=== PATIENT | female | born 1955 | race Caucasian/White ===

== ENCOUNTER 2017-04-18 14:48 | Inpatient (IN) | payer OTHER ==
[2017-04-18 14:51] VITALS: BMI 39.1
--- NOTE | 2017-04-18 15:08 | ED.ABDFE ---
HPI - Time seen Time seen: 15:00 - PCP Primary Care Physician: LAIMNE - Complaint Chief Complaint Doctors Comments: Patient presents with complaint of left lower abdominal quadrant pain of one days duration. She denies vomiiting or diarrhea but admits to low grade fever. Chief Complaint:: PT. C/O LEFT LOWER QUADRANT PAIN THAT BEGAN YESTERDAY. PT. STATES LAST NIGHT SHE HAD A FEVER. - Source History Provided: Patient - Mode of arrival Mode of Arrival: Ambulatory - Timing Onset of Chief Complaint: 04/17/17 PMH - PMH Past Medical History: Yes Past Medical History: Angina, Anxiety, Asthma, Depression, GERD, Hypertension, Hypothyroidism Past Medical History Comment: DIVERTICULOSIS, TIA Past Surgical History: Yes Surgical History: Hysterectomy, Ortho Surgery, Tonsillectomy - Family History History of Family Medical Conditions: Yes Family Medical History: Cancer, [place] - Social History Does patient currently use any type of tobacco product: No Have you used tobacco products in the last 12 months: No Type of Tobacco Use: None Does any household member use tobacco: No Alcohol Use: None Do you use any recreational Drugs:: No Lives With: Spouse Lives Where: Home - infectious screening In the last 2 months have you had wt loss of >10#?: NO Have you had fever, night sweats or hemotysis?: No Have you traveled outside the country in the last 6 months?: No Isolation: Standard ROS - Review of Systems Eyes: No Symptoms Reported ENTM: No Symptoms Reported Respiratoy: No Symptoms Reported Cardiovascular: No Symptoms Reported Gastrointestinal/Abdominal: No Symptoms Reported Genitourinary: No Symptoms Reported Neurological: No Symptoms Reported Musculoskeletal: No Symptoms Reported Integumentary: No Symptoms Reported Hematologic/Lymphatic: No Symptoms Reported Endocrine: No Symptoms Reported Psychiatric: No Symptoms Reported All Other Systems: Reviewed and Negative PE - Vital Signs Vitals: Temperature 100.7 F Pulse Rate 89 Respiratory Rate 20 Blood Pressure [Left Arm] 129/64 Blood Pressure [Right Arm] 105/62 Blood Pressure 145/66 O2 Sat by Pulse Oximetry 97 - General Limitations: No Limitations General Appearance: Alert, In No Apparent Distress - Head Head Exam: Normal Inspection, Atraumatic - Eyes Eye exam: Normal Appearance, PERRL, EOMI - ENT ENT Exam: Normal Exam - Neck Neck Exam: Normal Inspection, Full ROM - Chest Chest Inspection: Normal Inspection, Symmetric Chest Wall Rise - Respiratory Respiratory Exam: Normal Lung Sounds Bilat Respiratory Exam: Bilateral Clear to Auscultation - Cardiovascular Cardiovascular Exam: Regular Rate, Normal Rhythm - Abdominal Exam Abdominal Exam: Normal Inspection, Normal Bowel Sounds Abdominal Tenderness: LLQ (pain) - Rectal Rectal Exam: Deferred - Back Back Exam: Normal Inspection, Full ROM - Extremeties Extremities Exam: Normal Inspection, Full ROM - External Exam: Female: Normal External Exam : Speculum Exam (Female): Deferred : Bimanual Exam (female): Deferred - Neurologic Neurological Exam: Alert, Oriented X3, CN II-XII Intact - Psychiatric Psychiatric Exam: Normal Affect - Skin Skin Exam: Warm, Dry, Intact Course - Consultation Called: 17:30 (Dr Braga agreed to admit for further treatment and evaluation) ROR - Labs Reviewed Result Diagrams: 04/18/17 15:21 04/18/17 15:21 Laboratory: WBC 10.4 X10^3/uL (3.6-10.0) H 04/18/17 15:21 RBC 4.53 X10^6/uL (3.5-5.4) 04/18/17 15:21 Hgb 13.9 g/dL (12.0-16.0) 04/18/17 15:21 Hct 40.8 % (36.0-47.0) 04/18/17 15:21 MCV 89.9 fL (80.0-100.0) 04/18/17 15:21 MCH 30.6 pg (27.0-34.0) 04/18/17 15:21 MCHC 34.1 g/dL (33.0-35.0) 04/18/17 15:21 RDW 13.2 % (11.6-16.5) 04/18/17 15:21 Plt Count 235 X10^3/uL (150.0-450.0) 04/18/17 15:21 MPV 7.9 fL (7.4-11.0) 04/18/17 15:21 Neut % (Auto) 65.0 % (42.0-75.0) 04/18/17 15:21 Lymph % (Auto) 20.0 % (21.0-51.0) L 04/18/17 15:21 Grand % (Auto) 9.0 % (0.0-13.0) 04/18/17 15:21 Eos % (Auto) 5.4 % (0.9-2.9) H 04/18/17 15:21 Baso % (Auto) 0.6 % (0.2-1.0) 04/18/17 15:21 Neut # (Auto) 6.8 x10^3/uL (2.2-4.8) H 04/18/17 15:21 Lymph # (Auto) 2.1 X10^3/uL (1.3-2.9) 04/18/17 15:21 Grand # (Auto) 0.9 x10^3/uL (0.3-0.8) H 04/18/17 15:21 Eos # (Auto) 0.6 x10^3/uL (0.0-0.2) H 04/18/17 15:21 Baso # (Auto) 0.1 X10^3/uL (0.0-0.1) 04/18/17 15:21 Absolute Nucleated RBC 0.0 /100WBC 04/18/17 15:21 Sodium 141 mmol/L (136-145) 04/18/17 15:21 Corrected Sodium TNP 04/18/17 15:21 Potassium 4.0 mmol/L (3.5-5.1) 04/18/17 15:21 Chloride 108 mmol/L (98-107) H 04/18/17 15:21 Carbon Dioxide 24.4 mmol/L (21-32) 04/18/17 15:21 BUN 12 mg/dL (7-18) 04/18/17 15:21 Creatinine 0.96 mg/dL (0.55-1.02) 04/18/17 15:21 Est GFR (MDRD) Af Amer > 60 (>60) 04/18/17 15:21 Est GFR (MDRD) Non-Af > 60 (>60) 04/18/17 15:21 Glucose 85 mg/dL (65-99) 04/18/17 15:21 Calcium 8.2 mg/dL (8.5-10.1) L 04/18/17 15:21 Corrected Calcium 8.8 mg/dL (8.5-10.1) 04/18/17 15:21 Total Bilirubin 0.50 mg/dL (0.2-1.0) 04/18/17 15:21 AST 13 Units/L (15-37) L 04/18/17 15:21 ALT 25 Units/L (12-78) 04/18/17 15:21 Alkaline Phosphatase 78 Units/L (46-116) 04/18/17 15:21 C-Reactive Protein 65.50 mg/L (0-3.0) H 04/18/17 15:21 Total Protein 7.5 g/dL (6.4-8.2) 04/18/17 15:21 Albumin 3.3 g/dL (3.4-5.0) L 04/18/17 15:21 Globulin 4.2 g/dL (2.5-4.5) 04/18/17 15:21 Albumin/Globulin Ratio 0.8 Ratio (1.1-2.1) L 04/18/17 15:21 Specimen Type Clean catch urine 04/18/17 15:12 Urine Color Yellow (YELLOW) 04/18/17 15:12 Urine Appearance Clear (CLEAR) 04/18/17 15:12 Urine pH 6.5 (5.0 - 8.0) 04/18/17 15:12 Ur Specific [place] 1.015 (1.000-1.030) 04/18/17 15:12 Urine Protein Negative (NEGATIVE) 04/18/17 15:12 Urine Glucose (UA) Negative (NEGATIVE) 04/18/17 15:12 Urine Ketones Negative (NEGATIVE) 04/18/17 15:12 Urine Occult Blood 1+ (NEGATIVE) 04/18/17 15:12 Urine Nitrite Negative (NEGATIVE) 04/18/17 15:12 Urine Bilirubin Negative (NEGATIVE) 04/18/17 15:12 Urine Urobilinogen Normal (NORMAL) 04/18/17 15:12 Ur Leukocyte Esterase Negative (NEGATIVE) 04/18/17 15:12 Urine RBC 0-3 /HPF (NONE SEEN) 04/18/17 15:12 Urine WBC 0-2 /HPF (NONE SEEN) 04/18/17 15:12 Ur Squamous Epith Cells Many /HPF (NEGATIVE) 04/18/17 15:12 Urine Bacteria 1+ /HPF (NEGATIVE) 04/18/17 15:12 Ur Culture Indicated? No/not indicated 04/18/17 15:12 - XRAY XRAY Interpreted by: Radiologist (CT Abd/Pel with:Acute diverticulitis involving the distal descending colon without evidence of abscess or perforation. Cholelithiasis) - Diagnosis Discharge Problem: Diverticulitis Cholelithiasis Qualifiers: Cholelithiasis location: gallbladder Cholecystitis acuity: chronic Biliary obstruction: without biliary obstruction - Discharge Plan Condition: Stable - Follow ups/Referrals Follow ups/Referrals: Servando Bright [Primary Care Provider] - 3 days - Instructions
[2017-04-18 15:45] LABS: BASOPHILS # (AUTO) 0.1 X10^3/uL (0.0-0.1); BASOPHILS % (AUTO) 0.6 % (0.2-1.0); EOSINOPHILS # (AUTO) 0.6 x10^3/uL (0.0-0.2); EOSINOPHILS % (AUTO) 5.4 % (0.9-2.9); HEMATOCRIT 40.8 % (36.0-47.0); HEMOGLOBIN 13.9 g/dL (12.0-16.0); LYMPHOCYTES # (AUTO) 2.1 X10^3/uL (1.3-2.9); MEAN CORPUSCULAR HEMOGLOBIN 30.6 pg (27.0-34.0); MEAN CORPUSCULAR HGB CONC 34.1 g/dL (33.0-35.0); MEAN CORPUSCULAR VOLUME 89.9 fL (80.0-100.0); MEAN PLATELET VOLUME 7.9 fL (7.4-11.0); MONOCYTES # (AUTO) 0.9 x10^3/uL (0.3-0.8); NEUTROPHILS # (AUTO) 6.8 x10^3/uL (2.2-4.8); PLATELET COUNT 235 X10^3/uL (150.0-450.0); RED BLOOD COUNT 4.53 X10^6/uL (3.5-5.4); RED CELL DISTRIBUTION WIDTH 13.2 % (11.6-16.5); WHITE BLOOD COUNT 10.4 X10^3/uL (3.6-10.0)
[2017-04-18 15:45] LABS: BILIRUBIN,URINE NEGATIVE (NEGATIVE); BLOOD/HEMOGLOBIN,URINE 1+ (NEGATIVE); GLUCOSE, URINE NEGATIVE (NEGATIVE); KETONES,URINE NEGATIVE (NEGATIVE); LEUKOCYTE ESTERASE ,URINE NEGATIVE (NEGATIVE); NITRITES,URINE NEGATIVE (NEGATIVE); PH,URINE 6.5 (5.0 - 8.0); PROTEIN,URINE NEGATIVE (NEGATIVE); UROBILINOGEN,URINE NORMAL (NORMAL)
[2017-04-18 15:53] LABS: APPEARANCE,URINE CLEAR (CLEAR); BACTERIA,URINE 1+ /HPF (NEGATIVE); COLOR,URINE YELLOW (YELLOW); RBC,URINE 0-3 /HPF (NONE SEEN); SQUAMOUS EPITHELIAL CELL,UR MANY /HPF (NEGATIVE)
[2017-04-18 15:54] LABS: ALANINE AMINOTRANSFERASE 25 Units/L (12-78); ALBUMIN 3.3 g/dL (3.4-5.0); ALKALINE PHOSPHATASE 78 Units/L (46-116); ASPARTATE AMINO TRANSFERASE 13 Units/L (15-37); BLOOD UREA NITROGEN 12 mg/dL (7-18); CALCIUM 8.2 mg/dL (8.5-10.1); CARBON DIOXIDE 24.4 mmol/L (21-32); CHLORIDE 108 mmol/L (98-107); COR CA(FOR HYPOALB) 8.8 mg/dL (8.5-10.1); CREATININE 0.96 mg/dL (0.55-1.02); SODIUM 141 mmol/L (136-145); TOTAL PROTEIN 7.5 g/dL (6.4-8.2); eGFR BLACK RACES > 60 (>60); eGFR NON BLACK RACES > 60 (>60)
[2017-04-18] MEDS ORDERED: NS 100 ML IV 0 ML IV ONE (16:10)
--- NOTE | 2017-04-18 16:53 | CT ---
HISTORY: Severe left lower quadrant abdominal pain and fever Study: CT abdomen and pelvis with contrast Comparison: None Technique: Multiple axial images were obtained of the abdomen and pelvis beginning at the lung bases through the level of the ischial tuberosities. Reformatted coronal and sagittal planes were produced as well. Findings: The lung bases are clear. Imaging of the abdomen and pelvis demonstrates short segment wall thickening involving the distal milady cending colon with pericolonic inflammatory stranding. These inflammatory changes are superimposed up on a background of diverticulosis and are most consistent with acute diverticulitis. No organized flu id collection is identified to suggest abscess. No extraluminal free air is visualized to suggest per foration. No free fluid is present. There is no pathologic lymphadenopathy. The appendix is normal in appearance and without inflammatory change. The liver is unremarkable in appearance. There is no int rahepatic ductal dilatation. At least 1 large gallstone is identified within the gallbladder lumen. T he gallbladder is otherwise unremarkable. Incidental note is made of a duodenal diverticulum. The coburn creas, spleen, and bilateral adrenal glands are unremarkable. The kidneys demonstrate normal postcont rast enhancement and are without hydronephrosis. Within the midpole of the right kidney there is a 4. 8 cm renal cyst. Small renal cysts are identified within the left kidney as well. The uterus is surgi hannah absent. The urinary bladder is grossly unremarkable. Incidental note is made of a small fat con taining umbilical hernia. The bony structures are intact. The patient is status post L4-L5 posterior interbody fusion. IMPRESSION: 1. Findings consistent with acute diverticulitis involving the distal descending colon without eviden ce of abscess or perforation. 2. Cholelithiasis and other incidental findings as detailed above. Reported By:
[2017-04-18] MEDS ORDERED: DECADRON INJ IM ONE (17:47)
[2017-04-18 18:27] LABS: AMYLASE 30 Units/L (25-115); LIPASE 88 Units/L (73-393)
[2017-04-18] MEDS: PROTONIX INJ 40 MG VIAL 80 MG in NS 100 ML IV 80 ML IV SCH (20:13)
[2017-04-18] MEDS: NS 1000 ML 1,000 ML IV SCH (20:13)
[2017-04-18] MEDS: FLAGYL IV PREMIX 500 MG BAG 500 MG/100 ML BAG IV SCH (20:14)
[2017-04-18] MEDS: AMBIEN PO SCH (20:14)
[2017-04-18] MEDS: CIPRO IV 400 MG PREMIX* 400 MG/200 ML IV.SOLN. IV SCH (20:14)
[2017-04-18] MEDS: CRESTOR TAB 10 MG PO SCH (20:14)
[2017-04-18] MEDS: ZOFRAN INJ 4 MG VIAL IVP PRN (20:14)
[2017-04-18] MEDS: TAMBOCOR PO SCH (20:15)
[2017-04-18] MEDS: COZAAR PO SCH (20:15)
[2017-04-18] MEDS: TOPAMAX PO SCH (20:15)
[2017-04-18] MEDS: DILAUDID INJ IVP PRN (20:32)
[2017-04-19] MEDS: CIPRO IV 400 MG PREMIX* 400 MG/200 ML IV.SOLN. IV SCH ×3 (00:02→20:59)
[2017-04-19] MEDS: DILAUDID INJ IVP PRN ×4 (00:35→20:59)
[2017-04-19] MEDS: FLAGYL IV PREMIX 500 MG BAG 500 MG/100 ML BAG IV SCH ×4 (03:54→20:58)
[2017-04-19] MEDS: PROTONIX INJ 40 MG VIAL 80 MG in NS 100 ML IV 80 ML IV SCH ×4 (03:54→21:30)
[2017-04-19] MEDS: NS 1000 ML 1,000 ML IV SCH ×4 (06:09→23:55)
[2017-04-19 06:14] LABS: BASOPHILS % (AUTO) 0.7 % (0.2-1.0); EOSINOPHILS # (AUTO) 0.4 x10^3/uL (0.0-0.2); EOSINOPHILS % (AUTO) 6.7 % (0.9-2.9); HEMATOCRIT 37.2 % (36.0-47.0); HEMOGLOBIN 12.8 g/dL (12.0-16.0); LYMPHOCYTES # (AUTO) 1.8 X10^3/uL (1.3-2.9); LYMPHOCYTES % (AUTO) 27.6 % (21.0-51.0); MEAN CORPUSCULAR HEMOGLOBIN 30.8 pg (27.0-34.0); MEAN CORPUSCULAR HGB CONC 34.6 g/dL (33.0-35.0); MEAN CORPUSCULAR VOLUME 89.2 fL (80.0-100.0); MEAN PLATELET VOLUME 7.7 fL (7.4-11.0); MONOCYTES # (AUTO) 0.6 x10^3/uL (0.3-0.8); MONOCYTES % (AUTO) 9.2 % (0.0-13.0); NEUTROPHILS # (AUTO) 3.7 x10^3/uL (2.2-4.8); NEUTROPHILS % (AUTO) 55.8 % (42.0-75.0); PLATELET COUNT 206 X10^3/uL (150.0-450.0); RED BLOOD COUNT 4.17 X10^6/uL (3.5-5.4); WHITE BLOOD COUNT 6.7 X10^3/uL (3.6-10.0)
[2017-04-19 06:31] LABS: ALANINE AMINOTRANSFERASE 22 Units/L (12-78); ALBUMIN 2.8 g/dL (3.4-5.0); ALKALINE PHOSPHATASE 69 Units/L (46-116); ASPARTATE AMINO TRANSFERASE 13 Units/L (15-37); BLOOD UREA NITROGEN 11 mg/dL (7-18); CARBON DIOXIDE 24.3 mmol/L (21-32); CHLORIDE 108 mmol/L (98-107); COR NA(FOR HYPERGLY) 141 mmol/L (136-145); CREATININE 0.89 mg/dL (0.55-1.02); SODIUM 141 mmol/L (136-145); TOTAL PROTEIN 6.7 g/dL (6.4-8.2); eGFR BLACK RACES > 60 (>60); eGFR NON BLACK RACES > 60 (>60)
[2017-04-19 06:46] LABS: ERYTHROCYTE SEDIMENTATION RATE 37 MM/HOUR (0-20)
[2017-04-19] MEDS: ZOFRAN INJ 4 MG VIAL IVP PRN ×2 (09:38→20:57)
[2017-04-19] MEDS: SYNTHROID 50 mcg TAB PO SCH (09:39)
[2017-04-19] MEDS: ASPIRIN PO SCH (09:39)
[2017-04-19] MEDS: OXYBUTYNIN CHLORIDE ER PO SCH (09:39)
[2017-04-19] MEDS: ESTRACE PO SCH (09:39)
[2017-04-19] MEDS: TOPAMAX PO SCH ×2 (09:39→20:58)
[2017-04-19] MEDS: TAMBOCOR PO SCH ×2 (09:39→20:58)
--- NOTE | 2017-04-19 10:42 | DR.H&P ---
H&P - History & Physical for Day of: H&P Date: 04/18/17 - Chief Complaint Chief Complaint: LLQ ABDOMINAL PAIN - Allergies Allergies/Adverse Reactions: Allergies Allergy/AdvReac Type Severity Reaction Status Date / Time No Known Drug Allergies Allergy Verified 04/18/17 14:51 - History of Present Illness History of Present Illness: IS A 61 YEAR OLD PATIENT OF OURS WHO PRESENTED TO THE EMERGENCY ROOM WITH COMPLAINTS OF LLQ ABDOMINAL PAIN THAT BEGAN YESTERDAY. SHE ALSO REPORTS FEVER, BUT DENIES VOMITING OR DIARRHEA. PATIENT DOES REPORT A HISTORY SIGNIFICANT FOR DIVERTICULOSIS. ON ARRIVAL, VITALS SIGNS WERE 99.1-89-20-97%-145/66. LABS WERE OBTAINED. ABNORMAL LAB VALUES INCLUDE THE FOLLOWING: WBC 10.4, CHLORIDE 108, CALCIUM 8.2, AST 13, CRP 65.5, ALBUMIN 3.3. URINALYSIS REVEALED WBC 0-2, RBC 0-3, BACTERIA 1+, LEUKOCYTES TRACE, OCCULT BLOOD 1+. AN ABDOMEN/PELVIS CT WITH CONTRAST WAS OBTAINED AND REVEALED FINDINGS CONSISTENT WITH ACUTE DIVERTICULITITS INVOLVING THE DISTAL DESCENDING COLON WITHOUT EVIDENCE OF ABSCESS OR PERFORATION. CHOLELITHIASIS AND AN INCIDENTAL FINDING OF A SMALL FAT CONTAINING UMBILICAL HERNIA. PATIENT WAS ADMITTED TO THE HOSPITAL FOR FURTHER EVALUATION AND TREATMENT OF DIVERTICULITIS. SHE WAS STARTED ON NORMAL SALINE AT 100ML/HR, CIPRO 400MG IV Q12H, AND FLAGYL 500MG IV Q6H. WE PLAN TO FOLLOW UP WITH AM LABS AND CONTINUE TO MONITOR PATIENT. - Past Medical History Past Medical History: Angina, Anxiety, Asthma, Depression, GERD, Hypertension, Hypothyroidism Additional Medical History: Migraines, PVC's, Cervical Cancer - Past Surgical History Surgical History: Hysterectomy, Ortho Surgery, Tonsillectomy Additional Surgical History: Back surgery, Right TKA, Left shoulder surgery - Family History Family Medical History: Cancer, [place] - Social History Does patient currently use any type of tobacco product: No Have you used tobacco products in the last 12 months: No Type of Tobacco Use: None Does any household member use tobacco: No Alcohol Use: None Drug Use: None - Medications Home Medications: Cholecalciferol (Vitamin D3) [Vitamin D3] 1 tab PO DAILY 04/18/17 [History Confirmed 04/18/17] Losartan Potassium [LOSARTAN POTASSIUM 50 MG *] 1 tab PO HS 04/18/17 [History Confirmed 04/18/17] Oxybutynin Chloride [Oxybutynin Chloride ER] 1 tab PO DAILY 04/18/17 [History Confirmed 04/18/17] Prasterone (Dhea)/Calcium Carb [Dhea 50 mg Tablet] 1 tab PO DAILY 04/18/17 [ History Confirmed 04/18/17] Tramadol HCl 50 mg PO QID PRN 04/18/17 [History Confirmed 04/18/17] Vit B12/Levomefolate/Vit B6/B2 [Cerefolin Caplet] 6,000 units SL DAILY 04/18/17 [History Confirmed 04/18/17] - Review of Systems Constitutional: Fever Eyes: No Symptoms Reported. denies: See HPI, Pain, Vision Change, Conjunctivae Inflammation, Eyelid Inflammation, Redness, Other ENT: No Symptoms Reported. denies: See HPI, Ear Pain, Ear Discharge, Nose Pain , Nose Discharge, Nose Congestion, Mouth Pain, Mouth Swelling, Throat Pain, Throat Swelling, Other Respiratory: No Symptoms Reported. denies: See HPI, Cough, Dry, Shortness of Breath, Hemoptysis, SOB with Excertion, Pleuritic Pain, Sputum, Wheezing, Other Cardiovascular: No Symptoms Reported. denies: Chest Pain, See HPI, Palpitations , Orthopnea, Paroxysmal Noc. Dyspnea, Edema, Light Headedness, Other Gastrointestinal: Abdominal Pain. denies: Nausea, Vomiting, Diarrhea, Constipation, Melena, Hematochezia Genitourinary: No Symptoms Reported. denies: See HPI, Dysuria, Frequency, Incontinence, Hematuria, Retention, Other Musculoskeletal: No Symptoms Reported. denies: See HPI, Shoulder Pain, Arm Pain , Back Pain, Hand Pain, Leg Pain, Foot Pain, Neck Pain, Other Skin: No Symptoms Reported. denies: See HPI, Rash, Lesions, Jaundice, Bruising , Wound, Ecchymosis, Other Neurological: No Symptoms Reported - Physical Exam Vital Signs: Temperature 97.6 F Pulse Rate [Right Brachial] 58 Pulse Rate 89 Respiratory Rate 20 Blood Pressure [Left Arm] 107/61 Blood Pressure [Right Arm] 94/50 Blood Pressure 145/66 O2 Sat by Pulse Oximetry 93 Oriented: Normal Eyes: Normal. negative: Blurred Vision, Diplopia, Discharge, Pain, Redness, Photophobia, Other Ear: Normal. negative: Swelling, Ecchymosis, Hemotypanum, Abrasion, Laceration Nose: Normal. negative: Injected, Discharge, Blood Throat: Normal. negative: Tonsillar Hypertrophy, Red, Exudate, Dry, Other Respiratory: Clear Throughout Cardiovascular: Normal. negative: S3, S4, Murmur, Edema : Normal Auscultation: Bowel Sounds: Normal Palpation: Normal Tenderness: LLQ, Moderate, Guarding Skin: Normal. negative: Decreased Turgur, Rash, Papular, Macular, Maculopapular , Vesicular, Pustular, Petechial, Red, Tender, Hot, Diaphoresis, Wound, Bruising , Ecchymosis, Other Musculoskeletal: Normal. negative: Right, Left, Shoulder, Clavicle, Arm, Elbow , Forearm, Wrist, Hand, Hip, Thigh, Knee, Leg, Ankle, Foot, Back:Thoracic, Back: Lumbar, Back:Midline, Back:Paraspinous, Pelvis, Swelling, Tender, Deformity, Pulse Deficit, Motor Deficit, Sensory Deficit, Instability, Crepitance Psychiatric: Normal Mood Description: Calm Affect: Normal Speech Pattern: Clear - Assessment/Plan (1) Diverticulitis Status: Acute Plan: CIPRO 400MG IV Q12H, FLAYL 500MG IV Q6H, PROTONIX DRIP, CONTINUE TO MONITOR (2) Cholelithiasis Qualifiers: Cholelithiasis location: gallbladder Cholecystitis acuity: chronic Biliary obstruction: without biliary obstruction Status: Acute Plan: NORMAL SALINE AT 100ML/HR, DILAUDID 1MG IV Q4H PRN, CONTINUE TO MONITOR
--- NOTE | 2017-04-19 11:16 | PCM.PROG ---
Progress Note - Progress Note for Day of Date: 04/19/17 - Subjective Subjective: IS BEING TREATED FOR DIVERTICULITIS AND CHOLELITHIASIS. TODAY, SHE IS ALERT AND ORIENTED, LYING IN BED ON MORNING ROUNDS. SPOUSE IS AT BEDSIDE. SHE CONTINUES WITH COMPLAINTS OF LLQ ABDOMINAL PAIN TODAY. SHE CURRENTLY RATES PAIN 5/10. ON EXAMINATION, HEART IS REGULAR IN RATE AND RHYTHM. BILATERAL LUNGS ARE CLEAR TO AUSCULTATION. ABDOMEN IS ROUND, SOFT, AND NOTED WITH TENDERNESS TO THE LLQ ON PALPATION. NORMAL BOWEL SOUNDS ARE NOTED IN ALL QUADRANTS. THERE IS NORMAL RANGE OF MOTION NOTED TO ALL EXTREMITIES. HER VITALS THIS MORNING ARE 97.6-58-20-93%-94/50. LABS WERE OBTAINED. ABNORMAL LAB VALUES INCLUDE THE FOLLOWING: CHLORIDE 108, GLUCOSE 111, CALCIUM 8.0, AST 13, CRP 60.50 , ALBUMIN 2.8. TODAY, WE WILL CONTINUE WITH IV ANTIBIOTICS AND CURRENT PLAN OF CARE FOR DIVERTICULITIS AND CHOLELITHIASIS. WE PLAN TO FOLLOW UP WITH AM LABS AND CONTINUE TO MONITOR PATIENT. - Past Medical Family Social History Past Med/Fam/Surg Hx: No changes since H&P Allergies: Allergies No Known Drug Allergies Allergy (Verified 04/18/17 14:51) - Review of Systems ROS: No change since H&P - Vital Signs and I&O's Vital Signs: Temperature 97.6 F Pulse Rate [Right Brachial] 58 Pulse Rate 89 Respiratory Rate 20 Blood Pressure [Left Arm] 107/61 Blood Pressure [Right Arm] 94/50 Blood Pressure 145/66 O2 Sat by Pulse Oximetry 93 Intake and Output: Intake & Output 04/16/17 04/17/17 04/18/17 04/19/17 11:59 11:59 11:59 11:59 Intake Total 290 Balance 290 - Physical Exam Oriented: Normal Eyes: Normal. negative: Blurred Vision, Diplopia, Discharge, Pain, Redness, Photophobia, Other Ear: Normal. negative: Swelling, Ecchymosis, Hemotypanum, Abrasion, Laceration Nose: Normal. negative: Injected, Discharge, Blood Throat: Normal. negative: Tonsillar Hypertrophy, Red, Exudate, Dry, Other Respiratory: Normal Cardiovascular: Normal. negative: S3, S4, Murmur, Edema : Normal Auscultation: Bowel Sounds: Normal Palpation: Normal Tenderness: LLQ, Moderate, Guarding Skin: Normal. negative: Decreased Turgur, Rash, Papular, Macular, Maculopapular , Vesicular, Pustular, Petechial, Red, Tender, Hot, Diaphoresis, Wound, Bruising , Ecchymosis, Other Musculoskeletal: Normal. negative: Right, Left, Shoulder, Clavicle, Arm, Elbow , Forearm, Wrist, Hand, Hip, Thigh, Knee, Leg, Ankle, Foot, Back:Thoracic, Back: Lumbar, Back:Midline, Back:Paraspinous, Pelvis, Swelling, Tender, Deformity, Pulse Deficit, Motor Deficit, Sensory Deficit, Instability, Crepitance Psychiatric: Normal Mood Description: Calm Affect: Normal Speech Pattern: Clear - Laboratory and Diagnostics Result Diagrams: 04/19/17 05:30 04/19/17 05:30 Labs: Laboratory WBC 6.7 X10^3/uL (3.6-10.0) 04/19/17 05:30 RBC 4.17 X10^6/uL (3.5-5.4) 04/19/17 05:30 Hgb 12.8 g/dL (12.0-16.0) 04/19/17 05:30 Hct 37.2 % (36.0-47.0) 04/19/17 05:30 MCV 89.2 fL (80.0-100.0) 04/19/17 05:30 MCH 30.8 pg (27.0-34.0) 04/19/17 05:30 MCHC 34.6 g/dL (33.0-35.0) 04/19/17 05:30 RDW 13.0 % (11.6-16.5) 04/19/17 05:30 Plt Count 206 X10^3/uL (150.0-450.0) 04/19/17 05:30 MPV 7.7 fL (7.4-11.0) 04/19/17 05:30 Neut % (Auto) 55.8 % (42.0-75.0) 04/19/17 05:30 Lymph % (Auto) 27.6 % (21.0-51.0) 04/19/17 05:30 [place] % (Auto) 9.2 % (0.0-13.0) 04/19/17 05:30 Eos % (Auto) 6.7 % (0.9-2.9) H 04/19/17 05:30 Baso % (Auto) 0.7 % (0.2-1.0) 04/19/17 05:30 Neut # (Auto) 3.7 x10^3/uL (2.2-4.8) 04/19/17 05:30 Lymph # (Auto) 1.8 X10^3/uL (1.3-2.9) 04/19/17 05:30 [place] # (Auto) 0.6 x10^3/uL (0.3-0.8) 04/19/17 05:30 Eos # (Auto) 0.4 x10^3/uL (0.0-0.2) H 04/19/17 05:30 Baso # (Auto) 0.0 X10^3/uL (0.0-0.1) 04/19/17 05:30 Absolute Nucleated RBC 0.1 /100WBC 04/19/17 05:30 ESR 37 MM/HOUR (0-20) H 04/19/17 05:30 Sodium 141 mmol/L (136-145) 04/19/17 05:30 Corrected Sodium 141 mmol/L (136-145) 04/19/17 05:30 Potassium 3.9 mmol/L (3.5-5.1) 04/19/17 05:30 Chloride 108 mmol/L (98-107) H 04/19/17 05:30 Carbon Dioxide 24.3 mmol/L (21-32) 04/19/17 05:30 BUN 11 mg/dL (7-18) 04/19/17 05:30 Creatinine 0.89 mg/dL (0.55-1.02) 04/19/17 05:30 Est GFR (MDRD) Af Amer > 60 (>60) 04/19/17 05:30 Est GFR (MDRD) Non-Af > 60 (>60) 04/19/17 05:30 Glucose 111 mg/dL (65-99) H 04/19/17 05:30 Calcium 8.0 mg/dL (8.5-10.1) L 04/19/17 05:30 Corrected Calcium 9.0 mg/dL (8.5-10.1) 04/19/17 05:30 Total Bilirubin 0.40 mg/dL (0.2-1.0) 04/19/17 05:30 AST 13 Units/L (15-37) L 04/19/17 05:30 ALT 22 Units/L (12-78) 04/19/17 05:30 Alkaline Phosphatase 69 Units/L (46-116) 04/19/17 05:30 C-Reactive Protein 60.50 mg/L (0-3.0) H 04/19/17 05:30 Total Protein 6.7 g/dL (6.4-8.2) 04/19/17 05:30 Albumin 2.8 g/dL (3.4-5.0) L 04/19/17 05:30 Globulin 3.9 g/dL (2.5-4.5) 04/19/17 05:30 Albumin/Globulin Ratio 0.7 Ratio (1.1-2.1) L 04/19/17 05:30 Amylase 30 Units/L (25-115) 04/18/17 15:21 Lipase 88 Units/L (73-393) 04/18/17 15:21 Specimen Type Clean catch urine 04/18/17 15:12 Urine Color Yellow (YELLOW) 04/18/17 15:12 Urine Appearance Clear (CLEAR) 04/18/17 15:12 Urine pH 6.5 (5.0 - 8.0) 04/18/17 15:12 Ur Specific [place] 1.015 (1.000-1.030) 04/18/17 15:12 Urine Protein Negative (NEGATIVE) 04/18/17 15:12 Urine Glucose (UA) Negative (NEGATIVE) 04/18/17 15:12 Urine Ketones Negative (NEGATIVE) 04/18/17 15:12 Urine Occult Blood 1+ (NEGATIVE) 04/18/17 15:12 Urine Nitrite Negative (NEGATIVE) 04/18/17 15:12 Urine Bilirubin Negative (NEGATIVE) 04/18/17 15:12 Urine Urobilinogen Normal (NORMAL) 04/18/17 15:12 Ur Leukocyte Esterase Negative (NEGATIVE) 04/18/17 15:12 Urine RBC 0-3 /HPF (NONE SEEN) 04/18/17 15:12 Urine WBC 0-2 /HPF (NONE SEEN) 04/18/17 15:12 Ur Squamous Epith Cells Many /HPF (NEGATIVE) 04/18/17 15:12 Urine Bacteria 1+ /HPF (NEGATIVE) 04/18/17 15:12 Ur Culture Indicated? No/not indicated 04/18/17 15:12 - Plan (1) Diverticulitis Status: Acute Plan: CIPRO 400MG IV Q12H, FLAYL 500MG IV Q6H, PROTONIX DRIP, CONTINUE TO MONITOR (2) Cholelithiasis Status: Acute Qualifiers: Cholelithiasis location: gallbladder Cholecystitis acuity: chronic Biliary obstruction: without biliary obstruction Plan: NORMAL SALINE AT 100ML/HR, DILAUDID 1MG IV Q4H PRN, CONTINUE TO MONITOR (3) Hyperlipidemia Status: Chronic Qualifiers: Hyperlipidemia type: mixed hyperlipidemia Qualified Code(s): E78.2 - Mixed hyperlipidemia Plan: CONTINUE CRESTOR, CONTINUE TO MONITOR (4) GERD (gastroesophageal reflux disease) Status: Chronic Qualifiers: Esophagitis presence: esophagitis presence not specified Qualified Code(s) : K21.9 - Gastro-esophageal reflux disease without esophagitis Plan: CONTINUE ZANTAC, CONTINUE TO MONITOR (5) Hypertension Status: Chronic Qualifiers: Hypertension type: essential hypertension Qualified Code(s): I10 - Essential (primary) hypertension Plan: CONTINUE LOPRESSOR, CONTINUE TOPAMAX, CONTINUE TO MONITOR (6) Hypothyroidism Status: Chronic Qualifiers: Hypothyroidism type: acquired Qualified Code(s): E03.9 - Hypothyroidism, unspecified Plan: CONTINUE SYNTHROID, CONTINUE TO MONITOR
[2017-04-19] MEDS: B2 SL SCH (12:00)
[2017-04-19] MEDS: LEVOMEFOLATE SL SCH (12:00)
[2017-04-19] MEDS: CALCIUM CARB PO SCH (12:00)
[2017-04-19] MEDS: VIT B6 SL SCH (12:00)
[2017-04-19] MEDS: PRASTERONE PO SCH (12:00)
[2017-04-19] MEDS: [UNRECOGNIZED DRUG - OTHER] SL SCH (12:00)
[2017-04-19] MEDS: VIT B12 SL SCH (12:00)
[2017-04-19] MEDS: PROGESTERONE MICRONIZED 200 MG PO SCH (12:00)
[2017-04-19] MEDS: AMBIEN PO SCH (20:57)
[2017-04-19] MEDS: COZAAR PO SCH (20:57)
[2017-04-19] MEDS: CRESTOR TAB 10 MG PO SCH (20:58)
[2017-04-20] MEDS: PROTONIX INJ 40 MG VIAL 80 MG in NS 100 ML IV 80 ML IV SCH ×4 (02:16→20:21)
[2017-04-20] MEDS: DILAUDID INJ IVP PRN ×3 (05:00→20:23)
[2017-04-20] MEDS: FLAGYL IV PREMIX 500 MG BAG 500 MG/100 ML BAG IV SCH ×4 (05:00→20:21)
[2017-04-20 05:55] LABS: BASOPHILS % (AUTO) 0.7 % (0.2-1.0); EOSINOPHILS # (AUTO) 0.6 x10^3/uL (0.0-0.2); EOSINOPHILS % (AUTO) 9.7 % (0.9-2.9); HEMATOCRIT 38.1 % (36.0-47.0); HEMOGLOBIN 12.9 g/dL (12.0-16.0); LYMPHOCYTES # (AUTO) 1.8 X10^3/uL (1.3-2.9); LYMPHOCYTES % (AUTO) 28.1 % (21.0-51.0); MEAN CORPUSCULAR HEMOGLOBIN 30.4 pg (27.0-34.0); MEAN CORPUSCULAR HGB CONC 33.8 g/dL (33.0-35.0); MEAN CORPUSCULAR VOLUME 89.9 fL (80.0-100.0); MEAN PLATELET VOLUME 7.7 fL (7.4-11.0); MONOCYTES # (AUTO) 0.5 x10^3/uL (0.3-0.8); MONOCYTES % (AUTO) 8.1 % (0.0-13.0); NEUTROPHILS # (AUTO) 3.4 x10^3/uL (2.2-4.8); NEUTROPHILS % (AUTO) 53.4 % (42.0-75.0); PLATELET COUNT 220 X10^3/uL (150.0-450.0); RED BLOOD COUNT 4.24 X10^6/uL (3.5-5.4); RED CELL DISTRIBUTION WIDTH 12.7 % (11.6-16.5); WHITE BLOOD COUNT 6.3 X10^3/uL (3.6-10.0)
[2017-04-20 06:14] LABS: ALANINE AMINOTRANSFERASE 23 Units/L (12-78); ALBUMIN 2.8 g/dL (3.4-5.0); ALKALINE PHOSPHATASE 65 Units/L (46-116); ASPARTATE AMINO TRANSFERASE 13 Units/L (15-37); BLOOD UREA NITROGEN 9 mg/dL (7-18); CALCIUM 8.1 mg/dL (8.5-10.1); CARBON DIOXIDE 24.7 mmol/L (21-32); CHLORIDE 109 mmol/L (98-107); COR CA(FOR HYPOALB) 9.1 mg/dL (8.5-10.1); CREATININE 0.95 mg/dL (0.55-1.02); SODIUM 143 mmol/L (136-145); TOTAL PROTEIN 6.7 g/dL (6.4-8.2); eGFR BLACK RACES > 60 (>60); eGFR NON BLACK RACES > 60 (>60)
[2017-04-20] MEDS: CIPRO IV 400 MG PREMIX* 400 MG/200 ML IV.SOLN. IV SCH ×2 (09:18→20:21)
[2017-04-20] MEDS: TAMBOCOR PO SCH ×2 (09:19→20:20)
[2017-04-20] MEDS: ASPIRIN PO SCH (09:19)
[2017-04-20] MEDS: OXYBUTYNIN CHLORIDE ER PO SCH (09:19)
[2017-04-20] MEDS: SYNTHROID 50 mcg TAB PO SCH (09:19)
[2017-04-20] MEDS: TOPAMAX PO SCH ×2 (09:19→20:20)
[2017-04-20] MEDS: ESTRACE PO SCH (09:19)
[2017-04-20] MEDS: B2 SL SCH (09:26)
[2017-04-20] MEDS: PRASTERONE PO SCH (09:26)
[2017-04-20] MEDS: CALCIUM CARB PO SCH (09:26)
[2017-04-20] MEDS: VIT B6 SL SCH (09:26)
[2017-04-20] MEDS: LEVOMEFOLATE SL SCH (09:26)
[2017-04-20] MEDS: [UNRECOGNIZED DRUG - OTHER] SL SCH (09:26)
[2017-04-20] MEDS: PROGESTERONE MICRONIZED 200 MG PO SCH (09:26)
[2017-04-20] MEDS: VIT B12 SL SCH (09:26)
[2017-04-20] MEDS: NS 1000 ML 1,000 ML IV SCH ×2 (11:20→20:31)
[2017-04-20] MEDS: CRESTOR TAB 10 MG PO SCH (20:20)
[2017-04-20] MEDS: COZAAR PO SCH (20:31)
[2017-04-20] MEDS: AMBIEN PO SCH (22:14)
[2017-04-21] MEDS: DILAUDID INJ IVP PRN ×3 (04:10→23:40)
[2017-04-21] MEDS: FLAGYL IV PREMIX 500 MG BAG 500 MG/100 ML BAG IV SCH ×4 (04:19→20:53)
[2017-04-21 05:39] LABS: BASOPHILS % (AUTO) 0.7 % (0.2-1.0); EOSINOPHILS # (AUTO) 0.6 x10^3/uL (0.0-0.2); EOSINOPHILS % (AUTO) 9.7 % (0.9-2.9); HEMATOCRIT 38.1 % (36.0-47.0); HEMOGLOBIN 12.9 g/dL (12.0-16.0); LYMPHOCYTES # (AUTO) 2.1 X10^3/uL (1.3-2.9); LYMPHOCYTES % (AUTO) 32.2 % (21.0-51.0); MEAN CORPUSCULAR HEMOGLOBIN 30.6 pg (27.0-34.0); MEAN CORPUSCULAR HGB CONC 33.9 g/dL (33.0-35.0); MEAN CORPUSCULAR VOLUME 90.2 fL (80.0-100.0); MEAN PLATELET VOLUME 7.9 fL (7.4-11.0); MONOCYTES # (AUTO) 0.6 x10^3/uL (0.3-0.8); MONOCYTES % (AUTO) 8.8 % (0.0-13.0); NEUTROPHILS # (AUTO) 3.2 x10^3/uL (2.2-4.8); NEUTROPHILS % (AUTO) 48.6 % (42.0-75.0); PLATELET COUNT 221 X10^3/uL (150.0-450.0); RED BLOOD COUNT 4.23 X10^6/uL (3.5-5.4); RED CELL DISTRIBUTION WIDTH 12.9 % (11.6-16.5); WHITE BLOOD COUNT 6.5 X10^3/uL (3.6-10.0)
[2017-04-21 05:55] LABS: ALANINE AMINOTRANSFERASE 25 Units/L (12-78); ALBUMIN 2.9 g/dL (3.4-5.0); ALKALINE PHOSPHATASE 67 Units/L (46-116); ASPARTATE AMINO TRANSFERASE 19 Units/L (15-37); BLOOD UREA NITROGEN 7 mg/dL (7-18); CALCIUM 8.2 mg/dL (8.5-10.1); CARBON DIOXIDE 24.7 mmol/L (21-32); CHLORIDE 108 mmol/L (98-107); COR CA(FOR HYPOALB) 9.1 mg/dL (8.5-10.1); SODIUM 142 mmol/L (136-145); TOTAL PROTEIN 6.6 g/dL (6.4-8.2); eGFR BLACK RACES > 60 (>60); eGFR NON BLACK RACES > 60 (>60)
[2017-04-21] MEDS: PROTONIX INJ 40 MG VIAL 80 MG in NS 100 ML IV 80 ML IV SCH ×3 (06:18→18:20)
[2017-04-21] MEDS: NS 1000 ML 1,000 ML IV SCH ×2 (06:18→08:30)
[2017-04-21] MEDS: CIPRO IV 400 MG PREMIX* 400 MG/200 ML IV.SOLN. IV SCH ×2 (08:26→20:54)
[2017-04-21] MEDS: ASPIRIN PO SCH (08:27)
[2017-04-21] MEDS: ESTRACE PO SCH (08:27)
[2017-04-21] MEDS: OXYBUTYNIN CHLORIDE ER PO SCH (08:27)
[2017-04-21] MEDS: SYNTHROID 50 mcg TAB PO SCH (08:28)
[2017-04-21] MEDS: TAMBOCOR PO SCH ×2 (08:29→20:53)
[2017-04-21] MEDS: TOPAMAX PO SCH ×2 (08:29→20:52)
[2017-04-21] MEDS: VIT B6 SL SCH (08:30)
[2017-04-21] MEDS: VIT B12 SL SCH (08:30)
[2017-04-21] MEDS: [UNRECOGNIZED DRUG - OTHER] SL SCH (08:30)
[2017-04-21] MEDS: B2 SL SCH (08:30)
[2017-04-21] MEDS: PRASTERONE PO SCH (08:30)
[2017-04-21] MEDS: CALCIUM CARB PO SCH (08:30)
[2017-04-21] MEDS: LEVOMEFOLATE SL SCH (08:30)
[2017-04-21] MEDS: PROGESTERONE MICRONIZED 200 MG PO SCH (08:30)
--- NOTE | 2017-04-21 08:37 | CT ---
HISTORY: Diverticulitis Study: CT abdomen and pelvis with IV and oral contrast Comparison: 04/18/2017 Technique: Multiple axial images of the abdomen and pelvis were obtained from the lung bases to the pubic symphy sis following the administration of IV contrast. Oral contrast agents were also given. Coronal and s agittal images are also reviewed. Dose reduction techniques utilized automatic exposure control. Findings: The visualized portions of the lung bases are unremarkable. The liver, spleen, pancreas, and adrenal glands are unremarkable in their CT appearance. A 1.84 cm calcified gallstone is present. No gallbla dder wall thickening or pericholecystic fluid is seen. Stable bilateral renal cysts are again seen.. No significant mesenteric lymphadenopathy or stranding can be observed. No free fluid or free air i s seen within the abdomen. No bowel wall thickening or bowel dilatation is present. There is no sig nificant change in the appearance of diverticulitis involving the junction of the lower descending an d sigmoid colon regions. There is pericolonic fat reticulation in an area of severe diverticulosis. N o evidence of perforation, fluid or abscess is seen. There is no evidence of bowel obstruction. The u terus and ovaries are surgically absent.. The urinary bladder is grossly unremarkable. L4-5 lumbar f usion is again seen. There is degenerative disc disease also at L3-4. IMPRESSION: No significant interval change present involving the segment of active diverticulitis involving the d istal descending/sigmoid colon region. No abscess, fluid, perforation or obstruction is seen. Solitary calcified gallstone. Stable bilateral simple renal cysts. Reported By:
[2017-04-21] MEDS: ZOFRAN INJ 4 MG VIAL IVP PRN (10:03)
[2017-04-21] MEDS: MILK OF MAGNESIA PO SCH ×2 (15:57→20:51)
[2017-04-21] MEDS: COLACE CAP 100 MG PO SCH ×2 (15:57→20:51)
[2017-04-21] MEDS: CRESTOR TAB 10 MG PO SCH (20:52)
[2017-04-21] MEDS: COZAAR PO SCH (20:52)
[2017-04-21] MEDS: AMBIEN PO SCH (21:27)
[2017-04-22] MEDS ORDERED: K-LYTE EFFERVESCENT PO PRN (03:00)
[2017-04-22] MEDS ORDERED: MAG-OX TAB PO PRN (03:00)
[2017-04-22] MEDS ORDERED: MAGNESIUM SULFATE 1 GM/100 mL PREMIX 1 GM/100 ML BAG IV PRN (03:00)
[2017-04-22] MEDS ORDERED: POTASSIUM CHL 40 MEQ/NS 0.45% 500 ML IV PRN (03:00)
[2017-04-22] MEDS ORDERED: K-RIDER 10 MEQ/NS 100 ML 10 MEQ/100 ML BAG IV PRN (03:00)
[2017-04-22] MEDS ORDERED: POTASSIUM CHLORIDE LIQ 20 MEQ UDC PO PRN (03:00)
[2017-04-22] MEDS ORDERED: POTASSIUM CHL 60 MEQ/NS 0.45% 500 ML IV PRN (03:00)
[2017-04-22] MEDS: PROTONIX INJ 40 MG VIAL 80 MG in NS 100 ML IV 80 ML IV SCH ×3 (03:21→23:01)
[2017-04-22] MEDS: FLAGYL IV PREMIX 500 MG BAG 500 MG/100 ML BAG IV SCH ×4 (03:21→22:09)
[2017-04-22] MEDS ORDERED: NS 100 ML IV + SPIKE MINIBAG* 100 ML IV ONE ×3 (03:24→22:56)
[2017-04-22 05:31] LABS: BASOPHILS # (AUTO) 0.1 X10^3/uL (0.0-0.1); BASOPHILS % (AUTO) 0.9 % (0.2-1.0); EOSINOPHILS # (AUTO) 0.7 x10^3/uL (0.0-0.2); EOSINOPHILS % (AUTO) 8.1 % (0.9-2.9); HEMATOCRIT 40.8 % (36.0-47.0); LYMPHOCYTES # (AUTO) 2.7 X10^3/uL (1.3-2.9); LYMPHOCYTES % (AUTO) 33.3 % (21.0-51.0); MEAN CORPUSCULAR HEMOGLOBIN 30.6 pg (27.0-34.0); MEAN CORPUSCULAR HGB CONC 34.3 g/dL (33.0-35.0); MEAN CORPUSCULAR VOLUME 89.2 fL (80.0-100.0); MEAN PLATELET VOLUME 8.5 fL (7.4-11.0); MONOCYTES # (AUTO) 0.8 x10^3/uL (0.3-0.8); MONOCYTES % (AUTO) 9.4 % (0.0-13.0); NEUTROPHILS # (AUTO) 3.9 x10^3/uL (2.2-4.8); NEUTROPHILS % (AUTO) 48.3 % (42.0-75.0); PLATELET COUNT 145 X10^3/uL (150.0-450.0); RED BLOOD COUNT 4.58 X10^6/uL (3.5-5.4); RED CELL DISTRIBUTION WIDTH 12.6 % (11.6-16.5)
[2017-04-22 06:00] LABS: ALANINE AMINOTRANSFERASE 39 Units/L (12-78); ALKALINE PHOSPHATASE 70 Units/L (46-116); ASPARTATE AMINO TRANSFERASE 38 Units/L (15-37); BLOOD UREA NITROGEN 7 mg/dL (7-18); CALCIUM 8.4 mg/dL (8.5-10.1); CARBON DIOXIDE 26.1 mmol/L (21-32); CHLORIDE 107 mmol/L (98-107); COR CA(FOR HYPOALB) 9.2 mg/dL (8.5-10.1); CREATININE 0.96 mg/dL (0.55-1.02); SODIUM 142 mmol/L (136-145); TOTAL PROTEIN 6.8 g/dL (6.4-8.2); eGFR BLACK RACES > 60 (>60); eGFR NON BLACK RACES > 60 (>60)
[2017-04-22 06:08] LABS: PLATELET MORPHOLOGY COMMENT NORMAL (NORMAL); WHITE BLOOD COUNT 8.1 X10^3/uL (3.6-10.0)
[2017-04-22] MEDS: MILK OF MAGNESIA PO SCH ×3 (09:19→22:09)
[2017-04-22] MEDS: SYNTHROID 50 mcg TAB PO SCH (09:19)
[2017-04-22] MEDS: CIPRO IV 400 MG PREMIX* 400 MG/200 ML IV.SOLN. IV SCH ×2 (09:19→22:11)
[2017-04-22] MEDS: ASPIRIN PO SCH (09:19)
[2017-04-22] MEDS: COLACE CAP 100 MG PO SCH ×2 (09:29→22:08)
[2017-04-22] MEDS: TAMBOCOR PO SCH ×2 (09:30→22:06)
[2017-04-22] MEDS: ESTRACE PO SCH (09:33)
[2017-04-22] MEDS: OXYBUTYNIN CHLORIDE ER PO SCH (09:34)
[2017-04-22] MEDS: TOPAMAX PO SCH ×2 (09:41→22:07)
[2017-04-22] MEDS: VIT B6 SL SCH (09:45)
[2017-04-22] MEDS: VIT B12 SL SCH (09:45)
[2017-04-22] MEDS: PROGESTERONE MICRONIZED 200 MG PO SCH (09:45)
[2017-04-22] MEDS: B2 SL SCH (09:45)
[2017-04-22] MEDS: [UNRECOGNIZED DRUG - OTHER] SL SCH (09:45)
[2017-04-22] MEDS: LEVOMEFOLATE SL SCH (09:45)
[2017-04-22] MEDS: CALCIUM CARB PO SCH (09:45)
[2017-04-22] MEDS: PRASTERONE PO SCH (09:45)
[2017-04-22] MEDS: NS 1000 ML 1,000 ML IV SCH (11:02)
[2017-04-22] MEDS ORDERED: TYLENOL 325 MG TAB PO PRN (19:49)
[2017-04-22] MEDS: AMBIEN PO SCH (22:06)
[2017-04-22] MEDS: COZAAR PO SCH (22:06)
[2017-04-22] MEDS: CRESTOR TAB 10 MG PO SCH (22:06)
[2017-04-23] MEDS: FLAGYL IV PREMIX 500 MG BAG 500 MG/100 ML BAG IV SCH ×2 (03:29→11:44)
[2017-04-23 06:40] LABS: ALANINE AMINOTRANSFERASE 45 Units/L (12-78); ALBUMIN 3.1 g/dL (3.4-5.0); ALKALINE PHOSPHATASE 67 Units/L (46-116); ASPARTATE AMINO TRANSFERASE 42 Units/L (15-37); BLOOD UREA NITROGEN 8 mg/dL (7-18); CALCIUM 8.3 mg/dL (8.5-10.1); CARBON DIOXIDE 20.5 mmol/L (21-32); CHLORIDE 108 mmol/L (98-107); COR NA(FOR HYPERGLY) 141 mmol/L (136-145); CREATININE 0.76 mg/dL (0.55-1.02); SODIUM 141 mmol/L (136-145); TOTAL PROTEIN 6.6 g/dL (6.4-8.2); eGFR BLACK RACES > 60 (>60); eGFR NON BLACK RACES > 60 (>60)
[2017-04-23 06:47] LABS: BASOPHILS # (AUTO) 0.1 X10^3/uL (0.0-0.1); BASOPHILS % (AUTO) 0.9 % (0.2-1.0); EOSINOPHILS # (AUTO) 0.6 x10^3/uL (0.0-0.2); EOSINOPHILS % (AUTO) 8.9 % (0.9-2.9); HEMATOCRIT 39.9 % (36.0-47.0); HEMOGLOBIN 13.7 g/dL (12.0-16.0); LYMPHOCYTES # (AUTO) 1.8 X10^3/uL (1.3-2.9); LYMPHOCYTES % (AUTO) 28.6 % (21.0-51.0); MEAN CORPUSCULAR HEMOGLOBIN 30.5 pg (27.0-34.0); MEAN CORPUSCULAR HGB CONC 34.2 g/dL (33.0-35.0); MEAN CORPUSCULAR VOLUME 89.1 fL (80.0-100.0); MEAN PLATELET VOLUME 8.4 fL (7.4-11.0); MONOCYTES # (AUTO) 0.5 x10^3/uL (0.3-0.8); MONOCYTES % (AUTO) 8.2 % (0.0-13.0); NEUTROPHILS # (AUTO) 3.4 x10^3/uL (2.2-4.8); NEUTROPHILS % (AUTO) 53.4 % (42.0-75.0); PLATELET COUNT 225 X10^3/uL (150.0-450.0); RED BLOOD COUNT 4.48 X10^6/uL (3.5-5.4); RED CELL DISTRIBUTION WIDTH 13.1 % (11.6-16.5); WHITE BLOOD COUNT 6.4 X10^3/uL (3.6-10.0)
[2017-04-23 08:22] VITALS: BP 126/56
[2017-04-23] MEDS: CIPRO IV 400 MG PREMIX* 400 MG/200 ML IV.SOLN. IV SCH (09:31)
[2017-04-23] MEDS: TOPAMAX PO SCH (09:36)
[2017-04-23] MEDS: OXYBUTYNIN CHLORIDE ER PO SCH (09:36)
[2017-04-23] MEDS: MILK OF MAGNESIA PO SCH ×2 (09:36)
[2017-04-23] MEDS: ESTRACE PO SCH (09:36)
[2017-04-23] MEDS: TAMBOCOR PO SCH (09:36)
[2017-04-23] MEDS: ASPIRIN PO SCH (09:36)
[2017-04-23] MEDS: SYNTHROID 50 mcg TAB PO SCH (09:37)
[2017-04-23] MEDS: COLACE CAP 100 MG PO SCH (09:37)
[2017-04-23] MEDS: PRASTERONE PO SCH (09:41)
[2017-04-23] MEDS: PROGESTERONE MICRONIZED 200 MG PO SCH (09:41)
[2017-04-23] MEDS: CALCIUM CARB PO SCH (09:41)
[2017-04-23] MEDS: B2 SL SCH (09:42)
[2017-04-23] MEDS: [UNRECOGNIZED DRUG - OTHER] SL SCH (09:42)
[2017-04-23] MEDS: VIT B12 SL SCH (09:42)
[2017-04-23] MEDS: VIT B6 SL SCH (09:42)
[2017-04-23] MEDS: LEVOMEFOLATE SL SCH (09:42)
--- NOTE | 2017-04-23 11:37 | PCM.PROG ---
Progress Note - Progress Note for Day of Date: 04/20/17 - Subjective Subjective: IS BEING TREATED FOR DIVERTICULITIS AND CHOLELITHIASIS. TODAY, SHE IS ALERT AND ORIENTED, LYING IN BED ON MORNING ROUNDS. SPOUSE IS AT BEDSIDE. SHE CONTINUES WITH COMPLAINTS OF LLQ ABDOMINAL PAIN TODAY. SHE CURRENTLY RATES PAIN 4/10. ON EXAMINATION, HEART IS REGULAR IN RATE AND RHYTHM. BILATERAL LUNGS ARE CLEAR TO AUSCULTATION. ABDOMEN IS ROUND, SOFT, AND NOTED WITH TENDERNESS TO THE LLQ ON PALPATION. NORMAL BOWEL SOUNDS ARE NOTED IN ALL QUADRANTS. THERE IS NORMAL RANGE OF MOTION NOTED TO ALL EXTREMITIES. HER VITALS THIS MORNING ARE 98.0-64-18-98%-102/50. LABS WERE OBTAINED. ABNORMAL LAB VALUES INCLUDE THE FOLLOWING: CHLORIDE 109, GLUCOSE 100, CALCIUM 8.1, AST 13, ALBUMIN 2.8. TODAY, WE WILL CONTINUE WITH IV ANTIBIOTICS AND CURRENT PLAN OF CARE FOR DIVERTICULITIS AND CHOLELITHIASIS. WE WILL OBTAIN A REPEAT CT ABD/PELVIS WITH CONTRAST IN THE MORNING. WE PLAN TO FOLLOW UP WITH AM LABS AND CONTINUE TO MONITOR PATIENT. - Past Medical Family Social History Past Med/Fam/Surg Hx: No changes since H&P Allergies: Allergies No Known Drug Allergies Allergy (Verified 04/18/17 14:51) - Review of Systems ROS: No change since H&P - Vital Signs and I&O's Vital Signs: Temperature 98.3 F Pulse Rate [Right Brachial] 76 Pulse Rate 89 Respiratory Rate 20 Blood Pressure [Left Arm] 126/56 Blood Pressure [Right Arm] 93/52 Blood Pressure 145/66 O2 Sat by Pulse Oximetry 96 Intake and Output: Intake & Output 04/20/17 04/21/17 04/22/17 04/23/17 11:59 11:59 11:59 11:59 Intake Total 2370 2530 2613 2420 Balance 2370 2530 2613 2420 - Physical Exam Oriented: Normal Eyes: Normal. negative: Blurred Vision, Diplopia, Discharge, Pain, Redness, Photophobia, Other Ear: Normal. negative: Swelling, Ecchymosis, Hemotypanum, Abrasion, Laceration Nose: Normal. negative: Injected, Discharge, Blood Throat: Normal. negative: Tonsillar Hypertrophy, Red, Exudate, Dry, Other Respiratory: Normal Cardiovascular: Normal. negative: S3, S4, Murmur, Edema : Normal Auscultation: Bowel Sounds: Normal Palpation: Normal Tenderness: LLQ, Moderate, Guarding Skin: Normal. negative: Decreased Turgur, Rash, Papular, Macular, Maculopapular , Vesicular, Pustular, Petechial, Red, Tender, Hot, Diaphoresis, Wound, Bruising , Ecchymosis, Other Musculoskeletal: Normal. negative: Right, Left, Shoulder, Clavicle, Arm, Elbow , Forearm, Wrist, Hand, Hip, Thigh, Knee, Leg, Ankle, Foot, Back:Thoracic, Back: Lumbar, Back:Midline, Back:Paraspinous, Pelvis, Swelling, Tender, Deformity, Pulse Deficit, Motor Deficit, Sensory Deficit, Instability, Crepitance Psychiatric: Normal Mood Description: Calm Affect: Normal Speech Pattern: Clear, Appropriate - Laboratory and Diagnostics Result Diagrams: 04/23/17 05:48 04/23/17 05:48 Labs: Laboratory WBC 6.4 X10^3/uL (3.6-10.0) 04/23/17 05:48 RBC 4.48 X10^6/uL (3.5-5.4) 04/23/17 05:48 Hgb 13.7 g/dL (12.0-16.0) 04/23/17 05:48 Hct 39.9 % (36.0-47.0) 04/23/17 05:48 MCV 89.1 fL (80.0-100.0) 04/23/17 05:48 MCH 30.5 pg (27.0-34.0) 04/23/17 05:48 MCHC 34.2 g/dL (33.0-35.0) 04/23/17 05:48 RDW 13.1 % (11.6-16.5) 04/23/17 05:48 Plt Count 225 X10^3/uL (150.0-450.0) 04/23/17 05:48 Plt Count Comment Adequate (ADEQUATE) 04/22/17 04:35 MPV 8.4 fL (7.4-11.0) 04/23/17 05:48 Neut % (Auto) 53.4 % (42.0-75.0) 04/23/17 05:48 Lymph % (Auto) 28.6 % (21.0-51.0) 04/23/17 05:48 [place] % (Auto) 8.2 % (0.0-13.0) 04/23/17 05:48 Eos % (Auto) 8.9 % (0.9-2.9) H 04/23/17 05:48 Baso % (Auto) 0.9 % (0.2-1.0) 04/23/17 05:48 Neut # (Auto) 3.4 x10^3/uL (2.2-4.8) 04/23/17 05:48 Lymph # (Auto) 1.8 X10^3/uL (1.3-2.9) 04/23/17 05:48 [place] # (Auto) 0.5 x10^3/uL (0.3-0.8) 04/23/17 05:48 Eos # (Auto) 0.6 x10^3/uL (0.0-0.2) H 04/23/17 05:48 Baso # (Auto) 0.1 X10^3/uL (0.0-0.1) 04/23/17 05:48 Absolute Nucleated RBC 0.0 /100WBC 04/23/17 05:48 Plt Clumps, EDTA Few 04/22/17 04:35 Plt Morphology Comment Normal (NORMAL) 04/22/17 04:35 RBC Morphology Normal (NORMAL) 04/22/17 04:35 ESR 37 MM/HOUR (0-20) H 04/19/17 05:30 Sodium 141 mmol/L (136-145) 04/23/17 05:48 Corrected Sodium 141 mmol/L (136-145) 04/23/17 05:48 Potassium 4.0 mmol/L (3.5-5.1) 04/23/17 05:48 Chloride 108 mmol/L (98-107) H 04/23/17 05:48 Carbon Dioxide 20.5 mmol/L (21-32) L 04/23/17 05:48 BUN 8 mg/dL (7-18) 04/23/17 05:48 Creatinine 0.76 mg/dL (0.55-1.02) 04/23/17 05:48 Est GFR (MDRD) Af Amer > 60 (>60) 04/23/17 05:48 Est GFR (MDRD) Non-Af > 60 (>60) 04/23/17 05:48 Glucose 112 mg/dL (65-99) H 04/23/17 05:48 Calcium 8.3 mg/dL (8.5-10.1) L 04/23/17 05:48 Corrected Calcium 9.0 mg/dL (8.5-10.1) 04/23/17 05:48 Magnesium 2.4 mg/dL (1.7-2.9) 04/22/17 04:35 Total Bilirubin 0.40 mg/dL (0.2-1.0) 04/23/17 05:48 AST 42 Units/L (15-37) H 04/23/17 05:48 ALT 45 Units/L (12-78) 04/23/17 05:48 Alkaline Phosphatase 67 Units/L (46-116) 04/23/17 05:48 C-Reactive Protein 60.50 mg/L (0-3.0) H 04/19/17 05:30 Total Protein 6.6 g/dL (6.4-8.2) 04/23/17 05:48 Albumin 3.1 g/dL (3.4-5.0) L 04/23/17 05:48 Globulin 3.5 g/dL (2.5-4.5) 04/23/17 05:48 Albumin/Globulin Ratio 0.9 Ratio (1.1-2.1) L 04/23/17 05:48 Amylase 30 Units/L (25-115) 04/18/17 15:21 Lipase 88 Units/L (73-393) 04/18/17 15:21 Specimen Type Clean catch urine 04/18/17 15:12 Urine Color Yellow (YELLOW) 04/18/17 15:12 Urine Appearance Clear (CLEAR) 04/18/17 15:12 Urine pH 6.5 (5.0 - 8.0) 04/18/17 15:12 Ur Specific [place] 1.015 (1.000-1.030) 04/18/17 15:12 Urine Protein Negative (NEGATIVE) 04/18/17 15:12 Urine Glucose (UA) Negative (NEGATIVE) 04/18/17 15:12 Urine Ketones Negative (NEGATIVE) 04/18/17 15:12 Urine Occult Blood 1+ (NEGATIVE) 04/18/17 15:12 Urine Nitrite Negative (NEGATIVE) 04/18/17 15:12 Urine Bilirubin Negative (NEGATIVE) 04/18/17 15:12 Urine Urobilinogen Normal (NORMAL) 04/18/17 15:12 Ur Leukocyte Esterase Negative (NEGATIVE) 04/18/17 15:12 Urine RBC 0-3 /HPF (NONE SEEN) 04/18/17 15:12 Urine WBC 0-2 /HPF (NONE SEEN) 04/18/17 15:12 Ur Squamous Epith Cells Many /HPF (NEGATIVE) 04/18/17 15:12 Urine Bacteria 1+ /HPF (NEGATIVE) 04/18/17 15:12 Ur Culture Indicated? No/not indicated 04/18/17 15:12 - Plan (1) Diverticulitis Status: Acute Plan: ABD/PELVIS CT IN AM, CIPRO 400MG IV Q12H, FLAGYL 500MG IV Q6H, PROTONIX DRIP, CONTINUE TO MONITOR (2) Cholelithiasis Status: Acute Qualifiers: Cholelithiasis location: gallbladder Cholecystitis acuity: chronic Biliary obstruction: without biliary obstruction Plan: NORMAL SALINE AT 100ML/HR, DILAUDID 1MG IV Q4H PRN, CONTINUE TO MONITOR (3) Hyperlipidemia Status: Chronic Qualifiers: Hyperlipidemia type: mixed hyperlipidemia Qualified Code(s): E78.2 - Mixed hyperlipidemia Plan: CONTINUE CRESTOR, CONTINUE TO MONITOR (4) GERD (gastroesophageal reflux disease) Status: Chronic Qualifiers: Esophagitis presence: esophagitis presence not specified Qualified Code(s) : K21.9 - Gastro-esophageal reflux disease without esophagitis Plan: CONTINUE ZANTAC, CONTINUE TO MONITOR (5) Hypertension Status: Chronic Qualifiers: Hypertension type: essential hypertension Qualified Code(s): I10 - Essential (primary) hypertension Plan: CONTINUE LOPRESSOR, CONTINUE TOPAMAX, CONTINUE TO MONITOR (6) Hypothyroidism Status: Chronic Qualifiers: Hypothyroidism type: acquired Qualified Code(s): E03.9 - Hypothyroidism, unspecified Plan: CONTINUE SYNTHROID, CONTINUE TO MONITOR
[2017-04-23] MEDS: PROTONIX INJ 40 MG VIAL 80 MG in NS 100 ML IV 80 ML IV SCH (11:44)
== END 2017-04-23 11:30 | disposition home or self-care (01) | DRG 392 ==
LOC: ER 14:57 → MED/SURG 18:06
PROVIDERS: ADMIT Internal Medicine; ATTEND Internal Medicine
DX: K57.32 Diverticulitis of large intestine without perforation or abscess without bleeding (principal); K80.80 Other cholelithiasis without obstruction; R10.32 Left lower quadrant pain; K21.9 Gastro-esophageal reflux disease without esophagitis; I10 Essential (primary) hypertension; E03.8 Other specified hypothyroidism; F32.89 Other specified depressive episodes; F41.8 Other specified anxiety disorders; E78.2 Mixed hyperlipidemia; K59.09 Other constipation
CPT/HCPCS: 36415; 74177; 80053; 81001; 82150; 83690; 83735; 85025; 85652; 86140; 96365; 96367; 99283; 99284; A4216; A4222; C9113; S0030; J0744; J1170; J2405

== ENCOUNTER 2017-10-19 19:58 | Observation (INO) ==
[2017-10-19] MEDS ORDERED: NITROSTAT SL PRN (20:18)
--- NOTE | 2017-10-19 20:28 | DR.CP ---
HPI Time Seen Time Seen by Provider: 10/19/17 20:13 PCP Primary Care Physician: LAMINE Complaint Chief Complaint Doctor Comments: Onset of chest pain since last night. It has been intermittent but got steady and more painful this evening. It goes to between her shoulders. She has associated SOB but no nausea or vomiting. Chief Complaint:: CHEST PAIN RADIATES BETWEEN SHOULDER BLADES, SHORTNESS OF BREATH, COLD SWEATS O/S LAST HS AND THEN AGAIN BEFORE ARRIVING. TOOK ASPIRIN 325MG PO PRIOR TO ARRIVAL. NOTES PATIENT STATES, "IT HURTS TO TAKE A DEEP BREATH " Self Treatment fo Chief Complaint: ASPIRIN 325MG PO Reviewed Nurses Notes Review: Yes Source History Provided: Patient Mode of Arrival Mode of Arrival: Ambulatory Timing Onset of Chief Complaint: 10/18/17 Location Chest Pain Radiation Location: Left Shoulder and Right Shoulder Associated Signs and Symptoms Associated Signs and Symptoms: Shortness of Breath PMH PMH Past Medical History: Yes Past Medical History: Angina, Anxiety, Asthma, Depression, GERD, Hypertension and Hypothyroidism Past Medical History Comment: STATED "LIGHT STROKE, IRREGULAR HEART BEAT/ PALPITATIONS" Past Surgical History: Yes Surgical History: Hysterectomy, Ortho Surgery and Tonsillectomy Family History History of Family Medical Conditions: Yes Family Medical History: Cancer and DC Social History Does patient currently use any type of tobacco product: No Have you used tobacco products in the last 12 months: No Type of Tobacco Use: None Does any household member use tobacco: No Alcohol Use: None Do you use any recreational Drugs:: No Lives With: Spouse Lives Where: Home infectious screening Have you traveled outside the country in the last 6 months?: No Isolation: Standard ROS Review of Systems Constitutional: No Symptoms Reported Eyes: No Symptoms Reported ENTM: No Symptoms Reported Respiratoy: Short of Breath Cardiovascular: Chest Pain Gastrointestinal/Abdominal: No Symptoms Reported Genitourinary: No Symptoms Reported Neurological: No Symptoms Reported Musculoskeletal: No Symptoms Reported Integumentary: No Symptoms Reported Hematologic/Lymphatic: No Symptoms Reported Endocrine: No Symptoms Reported Psychiatric: No Symptoms Reported All Other Systems: Reviewed and Negative PE Vitals Vitals: Temperature 98.8 F Pulse Rate [Left] 91 Pulse Rate 90 Respiratory Rate 20 Blood Pressure [Left Arm] 126/56 Blood Pressure [Right Arm] 160/80 Blood Pressure 150/79 O2 Sat by Pulse Oximetry 93 General Limitations: No Limitations General Appearance: Alert and In No Apparent Distress Head Head Exam: Normal Inspection, Atraumatic and Normocephalic Eyes Eye exam: Normal Appearance, PERRL and EOMI ENT ENT Exam: Normal Exam and Normal Oropharynx Chest Chest Inspection: Normal Inspection and Tenderness (over left upper rib heads) Respiratory Respiratory Exam: Normal Lung Sounds Bilat Cardiovascular Cardiovascular Exam: Regular Rate, Normal Rhythm, +S1 and +S2 Abdominal Exam Abdominal Exam: Normal Inspection, Normal Bowel Sounds and Soft Extremities Extremities Exam: Normal Inspection and Full ROM; negative Tenderness, Normal Capillary Refill, Edema, Joint Swelling and Calf Tenderness Back Back Exam: Normal Inspection Neurologic Neurological Exam: Alert and Oriented X3 Psychiatric Psychiatric Exam: Normal Affect and Normal Mood Skin Skin Exam: Warm and Dry ROR Labs Reviewed Result Diagrams: 10/19/17 20:15 10/19/17 20:15 Laboratory: WBC 8.3 X10^3/uL (3.6-10.0) 10/19/17 20:15 RBC 4.75 X10^6/uL (3.5-5.4) 10/19/17 20:15 Hgb 14.8 g/dL (12.0-16.0) 10/19/17 20:15 Hct 43.0 % (36.0-47.0) 10/19/17 20:15 MCV 90.6 fL (80.0-100.0) 10/19/17 20:15 MCH 31.3 pg (27.0-34.0) 10/19/17 20:15 MCHC 34.5 g/dL (33.0-35.0) 10/19/17 20:15 RDW 13.8 % (11.6-16.5) 10/19/17 20:15 Plt Count 199 X10^3/uL (150.0-450.0) 10/19/17 20:15 MPV 8.2 fL (7.4-11.0) 10/19/17 20:15 Neut % (Auto) 55.4 % (42.0-75.0) 10/19/17 20:15 Lymph % (Auto) 31.3 % (21.0-51.0) 10/19/17 20:15 [place] % (Auto) 6.5 % (0.0-13.0) 10/19/17 20:15 Eos % (Auto) 6.1 % (0.9-2.9) H 10/19/17 20:15 Baso % (Auto) 0.7 % (0.2-1.0) 10/19/17 20:15 Neut # (Auto) 4.6 x10^3/uL (2.2-4.8) 10/19/17 20:15 Lymph # (Auto) 2.6 X10^3/uL (1.3-2.9) 10/19/17 20:15 [place] # (Auto) 0.5 x10^3/uL (0.3-0.8) 10/19/17 20:15 Eos # (Auto) 0.5 x10^3/uL (0.0-0.2) H 10/19/17 20:15 Baso # (Auto) 0.1 X10^3/uL (0.0-0.1) 10/19/17 20:15 Absolute Nucleated RBC 0.1 /100WBC 10/19/17 20:15 INR Target Range - 10/19/17 20:15 INR 0.97 (0.8-1.3) 10/19/17 20:15 APTT 28.3 SECONDS (22.9-36.5) 10/19/17 20:15 PTT Comment - 10/19/17 20:15 Sodium 145 mmol/L (136-145) 10/19/17 20:15 Corrected Sodium 146 mmol/L (136-145) H 10/19/17 20:15 Potassium 3.8 mmol/L (3.5-5.1) 10/19/17 20:15 Chloride 110 mmol/L (98-107) H 10/19/17 20:15 Carbon Dioxide 26.4 mmol/L (21-32) 10/19/17 20:15 BUN 13 mg/dL (7-18) 10/19/17 20:15 Creatinine 1.09 mg/dL (0.55-1.02) H 10/19/17 20:15 Est GFR (MDRD) Af Amer > 60 (>60) 10/19/17 20:15 Est GFR (MDRD) Non-Af 54 (>60) L 10/19/17 20:15 Glucose 134 mg/dL (65-99) H 10/19/17 20:15 Calcium 9.0 mg/dL (8.5-10.1) 10/19/17 20:15 Corrected Calcium TNP 10/19/17 20:15 Magnesium 2.1 mg/dL (1.7-2.9) 10/19/17 20:15 Total Bilirubin 0.40 mg/dL (0.2-1.0) 10/19/17 20:15 AST 18 Units/L (15-37) 10/19/17 20:15 ALT 31 Units/L (12-78) 10/19/17 20:15 Alkaline Phosphatase 91 Units/L (46-116) 10/19/17 20:15 Creatine Kinase 105 Units/L (26-192) 10/19/17 20:15 CK-MB (CK-2) < 1.0 ng/mL (0-4.0) 10/19/17 20:15 CK/CKMB % Calc 1.0 % (<4) 10/19/17 20:15 Troponin I < 0.02 ng/mL (0-1.5) 10/19/17 20:15 Total Protein 7.3 g/dL (6.4-8.2) 10/19/17 20:15 Albumin 3.5 g/dL (3.4-5.0) 10/19/17 20:15 Globulin 3.8 g/dL (2.5-4.5) 10/19/17 20:15 Albumin/Globulin Ratio 0.9 Ratio (1.1-2.1) L 10/19/17 20:15 XRAY XRAY Interpreted by: Radiologist XRAY Findings: CXR: hypoinflated but clear. EKG Rate: 72 Leopold: RAD Rhythm: NSR Block: None Hypertrophy: None ST: Normal Diagnosis Discharge Problem: Chest pain
[2017-10-19 20:40] LABS: BASOPHILS # (AUTO) 0.1 X10^3/uL (0.0-0.1); BASOPHILS % (AUTO) 0.7 % (0.2-1.0); EOSINOPHILS # (AUTO) 0.5 x10^3/uL (0.0-0.2); EOSINOPHILS % (AUTO) 6.1 % (0.9-2.9); HEMOGLOBIN 14.8 g/dL (12.0-16.0); LYMPHOCYTES # (AUTO) 2.6 X10^3/uL (1.3-2.9); LYMPHOCYTES % (AUTO) 31.3 % (21.0-51.0); MEAN CORPUSCULAR HEMOGLOBIN 31.3 pg (27.0-34.0); MEAN CORPUSCULAR HGB CONC 34.5 g/dL (33.0-35.0); MEAN CORPUSCULAR VOLUME 90.6 fL (80.0-100.0); MEAN PLATELET VOLUME 8.2 fL (7.4-11.0); MONOCYTES # (AUTO) 0.5 x10^3/uL (0.3-0.8); MONOCYTES % (AUTO) 6.5 % (0.0-13.0); NEUTROPHILS # (AUTO) 4.6 x10^3/uL (2.2-4.8); NEUTROPHILS % (AUTO) 55.4 % (42.0-75.0); PLATELET COUNT 199 X10^3/uL (150.0-450.0); RED BLOOD COUNT 4.75 X10^6/uL (3.5-5.4); RED CELL DISTRIBUTION WIDTH 13.8 % (11.6-16.5); WHITE BLOOD COUNT 8.3 X10^3/uL (3.6-10.0)
[2017-10-19 20:46] LABS: ALANINE AMINOTRANSFERASE 31 Units/L (12-78); ALBUMIN 3.5 g/dL (3.4-5.0); ALKALINE PHOSPHATASE 91 Units/L (46-116); ASPARTATE AMINO TRANSFERASE 18 Units/L (15-37); BLOOD UREA NITROGEN 13 mg/dL (7-18); CARBON DIOXIDE 26.4 mmol/L (21-32); CHLORIDE 110 mmol/L (98-107); COR NA(FOR HYPERGLY) 146 mmol/L (136-145); CREATININE 1.09 mg/dL (0.55-1.02); SODIUM 145 mmol/L (136-145); TOTAL PROTEIN 7.3 g/dL (6.4-8.2); eGFR NON BLACK RACES 54 (>60)
[2017-10-19 20:54] LABS: CREATINE KINASE 105 Units/L (26-192); CREATINE KINASE MB < 1.0 ng/mL (0-4.0); MAGNESIUM 2.1 mg/dL (1.7-2.9); TROPONIN I < 0.02 ng/mL (0-1.5)
--- NOTE | 2017-10-19 20:55 | RAD ---
Chest, one view Indication: Chest pain, shortness of breath Comparison: 01/17/2016 Findings: The lungs are mildly hypoinflated but grossly clear without dense infiltrates or significan t pleural effusion. Cardiac silhouette is unremarkable. Impression: No acute chest process. Reported By:
[2017-10-19] MEDS ORDERED: SOMA TAB 350 MG PO PRN (21:52)
[2017-10-20 04:36] LABS: BASOPHILS # (AUTO) 0.2 X10^3/uL (0.0-0.1); BASOPHILS % (AUTO) 2.4 % (0.2-1.0); EOSINOPHILS # (AUTO) 0.6 x10^3/uL (0.0-0.2); EOSINOPHILS % (AUTO) 7.7 % (0.9-2.9); HEMATOCRIT 41.3 % (36.0-47.0); HEMOGLOBIN 14.2 g/dL (12.0-16.0); LYMPHOCYTES # (AUTO) 2.2 X10^3/uL (1.3-2.9); LYMPHOCYTES % (AUTO) 31.1 % (21.0-51.0); MEAN CORPUSCULAR HEMOGLOBIN 31.3 pg (27.0-34.0); MEAN CORPUSCULAR HGB CONC 34.3 g/dL (33.0-35.0); MEAN CORPUSCULAR VOLUME 91.1 fL (80.0-100.0); MEAN PLATELET VOLUME 7.9 fL (7.4-11.0); MONOCYTES # (AUTO) 0.5 x10^3/uL (0.3-0.8); MONOCYTES % (AUTO) 6.9 % (0.0-13.0); NEUTROPHILS # (AUTO) 3.7 x10^3/uL (2.2-4.8); NEUTROPHILS % (AUTO) 51.9 % (42.0-75.0); PLATELET COUNT 170 X10^3/uL (150.0-450.0); RED BLOOD COUNT 4.53 X10^6/uL (3.5-5.4); RED CELL DISTRIBUTION WIDTH 13.4 % (11.6-16.5); WHITE BLOOD COUNT 7.2 X10^3/uL (3.6-10.0)
[2017-10-20 04:45] LABS: ALANINE AMINOTRANSFERASE 27 Units/L (12-78); ALBUMIN 3.2 g/dL (3.4-5.0); ALKALINE PHOSPHATASE 81 Units/L (46-116); ASPARTATE AMINO TRANSFERASE 18 Units/L (15-37); BLOOD UREA NITROGEN 15 mg/dL (7-18); CALCIUM 8.6 mg/dL (8.5-10.1); CARBON DIOXIDE 23.8 mmol/L (21-32); CHLORIDE 110 mmol/L (98-107); COR CA(FOR HYPOALB) 9.2 mg/dL (8.5-10.1); CREATININE 1.11 mg/dL (0.55-1.02); SODIUM 144 mmol/L (136-145); TOTAL PROTEIN 6.5 g/dL (6.4-8.2); eGFR NON BLACK RACES 53 (>60)
[2017-10-20 04:59] LABS: CKMB % 1.1 % (<4); CREATINE KINASE 91 Units/L (26-192); CREATINE KINASE MB < 1.0 ng/mL (0-4.0); TROPONIN I < 0.02 ng/mL (0-1.5)
[2017-10-20] MEDS: ESTRACE PO SCH (08:43)
[2017-10-20] MEDS: TAMBOCOR PO SCH ×2 (08:43→20:55)
[2017-10-20] MEDS: VITAMIN D3 PO SCH (08:43)
[2017-10-20] MEDS: OXYBUTYNIN CHLORIDE ER PO SCH (08:44)
[2017-10-20] MEDS: LOVENOX INJ 40 MG SYR SC SCH (08:44)
[2017-10-20] MEDS: ZANTAC PO SCH ×2 (08:44→20:55)
[2017-10-20] MEDS: TOPAMAX PO SCH ×2 (08:44→20:54)
[2017-10-20] MEDS: SYNTHROID 50 mcg TAB PO SCH (08:44)
[2017-10-20] MEDS: ASPIRIN PO SCH (08:44)
[2017-10-20] MEDS: NAPROSYN PO SCH ×2 (08:44→20:56)
[2017-10-20] MEDS ORDERED: FLECAINIDE ACETATE 100 MG PO SCH (09:00)
[2017-10-20] MEDS ORDERED: ESTRADIOL PO SCH (09:00)
[2017-10-20] MEDS ORDERED: PATIENT'S HOME MEDICATION (Diclofenac Sodium [Diclofenac Sodium] 75 MG) PO SCH (09:00)
[2017-10-20] MEDS ORDERED: PATIENT'S HOME MEDICATION (Cholecalciferol (Vitamin D3) [Cholecalciferol (Vitamin D3)] 1 T PO SCH (09:00)
[2017-10-20 10:41] LABS: CREATINE KINASE 82 Units/L (26-192); CREATINE KINASE MB < 1.0 ng/mL (0-4.0); TROPONIN I < 0.02 ng/mL (0-1.5)
[2017-10-20 10:59] LABS: CKMB % 1.2 % (<4)
[2017-10-20] MEDS: PRASTERONE CALCIUM CARB PO SCH (11:32)
[2017-10-20] MEDS: [UNRECOGNIZED DRUG - MIXTURE] Sublingual SCH (11:33)
[2017-10-20] MEDS: ULTRAM PO PRN (14:18)
[2017-10-20] MEDS: SINGULAIR TAB 10 MG PO SCH (20:55)
[2017-10-20] MEDS: CRESTOR TAB 10 MG PO SCH (20:56)
[2017-10-20] MEDS: COZAAR PO SCH (20:56)
[2017-10-20] MEDS: AMBIEN PO SCH (20:56)
[2017-10-20] MEDS: ROBITUSSIN DM PO PRN (20:59)
[2017-10-21 07:54] VITALS: BMI 38.1
[2017-10-21] MEDS: VITAMIN D3 PO SCH (08:26)
[2017-10-21] MEDS: TAMBOCOR PO SCH ×2 (08:26→21:06)
[2017-10-21] MEDS: ZANTAC PO SCH ×2 (08:27→21:05)
[2017-10-21] MEDS: OXYBUTYNIN CHLORIDE ER PO SCH (08:27)
[2017-10-21] MEDS: ESTRACE PO SCH (08:27)
[2017-10-21] MEDS: TOPAMAX PO SCH ×2 (08:28→21:06)
[2017-10-21] MEDS: SYNTHROID 50 mcg TAB PO SCH (08:28)
[2017-10-21] MEDS: LOVENOX INJ 40 MG SYR SC SCH (08:28)
[2017-10-21] MEDS: NAPROSYN PO SCH ×2 (08:28→21:06)
[2017-10-21] MEDS: ASPIRIN PO SCH (08:28)
[2017-10-21] MEDS: PRASTERONE CALCIUM CARB PO SCH (08:30)
[2017-10-21] MEDS: [UNRECOGNIZED DRUG - MIXTURE] Sublingual SCH (08:30)
[2017-10-21] MEDS: ROBITUSSIN DM PO PRN ×4 (08:33→21:07)
[2017-10-21] MEDS ORDERED: TESSALON PERLES PO PRN (12:40)
[2017-10-21] MEDS ORDERED: ASTELIN NASAL SPRAY ENOSTRIL ONE (13:31)
[2017-10-21] MEDS: ASTELIN NASAL SPRAY ENOSTRIL SCH ×2 (13:52→21:07)
[2017-10-21] MEDS: FLONASE NASAL SPRAY ENOSTRIL SCH (13:56)
[2017-10-21] MEDS: ULTRAM PO PRN (15:22)
[2017-10-21] MEDS: CRESTOR TAB 10 MG PO SCH (21:05)
[2017-10-21] MEDS: COZAAR PO SCH (21:06)
[2017-10-21] MEDS: AMBIEN PO SCH (21:06)
[2017-10-21] MEDS: SINGULAIR TAB 10 MG PO SCH (21:06)
[2017-10-21] MEDS ORDERED: MILK OF MAGNESIA PO PRN (22:28)
[2017-10-22 05:07] LABS: BASOPHILS # (AUTO) 0.1 X10^3/uL (0.0-0.1); EOSINOPHILS # (AUTO) 0.6 x10^3/uL (0.0-0.2); EOSINOPHILS % (AUTO) 9.4 % (0.9-2.9); HEMATOCRIT 39.2 % (36.0-47.0); HEMOGLOBIN 13.4 g/dL (12.0-16.0); LYMPHOCYTES # (AUTO) 2.7 X10^3/uL (1.3-2.9); LYMPHOCYTES % (AUTO) 38.9 % (21.0-51.0); MEAN CORPUSCULAR HEMOGLOBIN 30.9 pg (27.0-34.0); MEAN CORPUSCULAR HGB CONC 34.2 g/dL (33.0-35.0); MEAN CORPUSCULAR VOLUME 90.4 fL (80.0-100.0); MEAN PLATELET VOLUME 7.7 fL (7.4-11.0); MONOCYTES # (AUTO) 0.6 x10^3/uL (0.3-0.8); MONOCYTES % (AUTO) 9.4 % (0.0-13.0); NEUTROPHILS # (AUTO) 2.8 x10^3/uL (2.2-4.8); NEUTROPHILS % (AUTO) 41.3 % (42.0-75.0); PLATELET COUNT 149 X10^3/uL (150.0-450.0); RED BLOOD COUNT 4.34 X10^6/uL (3.5-5.4); RED CELL DISTRIBUTION WIDTH 13.3 % (11.6-16.5); WHITE BLOOD COUNT 6.8 X10^3/uL (3.6-10.0)
[2017-10-22 05:12] LABS: ALANINE AMINOTRANSFERASE 23 Units/L (12-78); ALKALINE PHOSPHATASE 84 Units/L (46-116); ASPARTATE AMINO TRANSFERASE 14 Units/L (15-37); BLOOD UREA NITROGEN 18 mg/dL (7-18); CALCIUM 8.2 mg/dL (8.5-10.1); CARBON DIOXIDE 24.2 mmol/L (21-32); CHLORIDE 111 mmol/L (98-107); COR NA(FOR HYPERGLY) 145 mmol/L (136-145); CREATININE 1.03 mg/dL (0.55-1.02); SODIUM 144 mmol/L (136-145); TOTAL PROTEIN 6.1 g/dL (6.4-8.2); eGFR NON BLACK RACES 58 (>60)
[2017-10-22] MEDS: ASTELIN NASAL SPRAY ENOSTRIL SCH (05:42)
[2017-10-22] MEDS: LOVENOX INJ 40 MG SYR SC SCH (09:56)
[2017-10-22] MEDS: VITAMIN D3 PO SCH (09:57)
[2017-10-22] MEDS: TAMBOCOR PO SCH (09:58)
[2017-10-22] MEDS: ASPIRIN PO SCH (09:58)
[2017-10-22] MEDS: ESTRACE PO SCH (09:58)
[2017-10-22] MEDS: ZANTAC PO SCH (09:58)
[2017-10-22] MEDS: NAPROSYN PO SCH (09:58)
[2017-10-22] MEDS: SYNTHROID 50 mcg TAB PO SCH (09:58)
[2017-10-22] MEDS: OXYBUTYNIN CHLORIDE ER PO SCH (09:58)
[2017-10-22] MEDS: TOPAMAX PO SCH (09:58)
[2017-10-22] MEDS: FLONASE NASAL SPRAY ENOSTRIL SCH (10:02)
[2017-10-22] MEDS: [UNRECOGNIZED DRUG - MIXTURE] Sublingual SCH (10:04)
[2017-10-22] MEDS: PRASTERONE CALCIUM CARB PO SCH (10:04)
[2017-10-22 10:06] VITALS: BP 124/66
--- NOTE | 2017-12-03 23:05 | DR.CARTERD ---
- Discharge Summary for: Discharge Summary for Date of:: 10/22/17 - Admission Date Date of Admission: 10/19/17 - Admission Diagnoses Admission Diagnosis: 1. Chest pain 2. Shortness of breath 3. Cold sweats 4. Shoulder pain - Discharge Date Discharge Date: 10/22/17 - Discharge Diagnoses Discharge Diagnosis: 1. Chest pain 2. Shortness of breath 3. Cold sweats 4. Shoulder pain - Hospital Course Hospital Course: Ms. Pete presented to the emergency room with reports of chest pain. Patient reported pain started the night before with intermittent pain between her shoulders. Patient reported associated shortness of breath. Patient stated that she had a cold sweat that came over her but denied any nausea or vomiting. Patient stated she took and ASA 325mg and she experienced some relief. Patient stated that pain returned the following night and she took another ASA 325mg po but did not have any relief so she came to the ER. Patient stated that the pain became worse when she tried to take a deep breath. Patient admitted to the hospital as observation for further evaluation and treatment. We obtained serial cardiac enzymes and EKG's and monitored. On day two and three, patient continued with chest pain. She was noted with a cough and started on Astelin, Flonase, and Tessalon Perrles. Treatment was continued and she was monitored on telemetry. On day four, patient reported improvement in cough. Cardiac enzymes and EKGs normal. Vital signs stable. Labs wnl. Patient denied chest pain or shortness of breath. We planned for discharge. Instructions for medications and follow up were discussed with patient and family, both voiced understanding. Patient discharged home in stable condition with family. - Discharge Medications Discharge Medications: Home Medication List [id number] 1 tab PO TID PRN 10/19/17 [History] azelastine 1 spry ENOSTRIL TID #1 bottle 10/21/17 [Rx] benzonatate 200 mg PO TID PRN #30 cap 10/21/17 [Rx] fluticasone 2 spr ENOSTRIL DAILY #1 bottle 10/21/17 [Rx] Prescriptions: azelastine PATELLIZZ N benzonatate PATEL,LIZZ N fluticasone PATELLIZZ N Flecainide Acetate 100 mg PO BID 01/07/12 Zolpidem Tartrate [Ambien] 10 mg PO HS 01/07/12 carisoprodol 350 mg PO TID PRN 01/07/12 ranitidine HCl 150 mg PO BID 01/07/12 topiramate 25 mg PO BID 01/07/12 Montelukast Sodium 1 tab PO HS 05/09/13 diclofenac sodium 75 mg PO BID 01/17/16 estradiol [Estrace] 0.5 tab PO DAILY 01/17/16 levothyroxine 50 mcg PO DAILY 01/17/16 progesterone micronized [Prometrium] 200 mg PO DAILY 01/17/16 rosuvastatin [Crestor] 10 mg PO HS 01/17/16 aspirin 325 mg PO DAILY #100 tab 01/19/16 Oxybutynin Chloride [Oxybutynin Chloride ER] 1 tab PO DAILY 04/18/17 cholecalciferol (vitamin D3) 1 tab PO DAILY 04/18/17 [id number] [Cerefolin] 6,000 units SUBLINGUAL DAILY 04/18/17 losartan 1 tab PO HS 04/18/17 prasterone (dhea)-calcium carb [DHEA] 1 tab PO DAILY 04/18/17 tramadol 50 mg PO QID PRN 04/18/17 - Discharge Disposition Discharge Disposition: Patient is to follow up in our office in one week.
== END 2017-10-22 11:20 | disposition home or self-care (01) ==
LOC: MED/SURG 19:58 → ER 19:58 → MED/SURG 22:24
PROVIDERS: ADMIT Obstetrics & Gynecology Obstetrics; ATTEND Internal Medicine
DX: Z79.01 Long term (current) use of anticoagulants; Z79.899 Other long term (current) drug therapy; J30.9 Allergic rhinitis, unspecified; R06.02 Shortness of breath; M25.511 Pain in right shoulder; M25.512 Pain in left shoulder; R07.89 Other chest pain; R94.4 Abnormal results of kidney function studies; R94.31 Abnormal electrocardiogram [ECG] [EKG]
CPT/HCPCS: 36415; 71010; 71045; 80053; 82550; 82553; 83735; 84484; 85025; 85610; 85730; 93005; 93010; 96365; 99284; A4222; G0378; J1650